=== PATIENT | female | born 1960 | race Caucasian/White ===

== ENCOUNTER → 2017-03-16 | Outpatient (CLI) | payer OTHER ==
--- NOTE | 2017-03-16 11:43 | DIAGNOSTIC IMAGING REPORT ---
R FOOT MIN 3 VIEWS ROUTINE CLINICAL HISTORY: Right foot pain COMPARISON: None DISCUSSION: There is a presumed os naviculare. This demonstrates mild irregular margins. Correlation with patient's site of pain is advocated. There are no additional bony findings of significance. There are no erosive or destructive changes. IMPRESSION: 1. Os navicularis demonstrating mild irregular margins. If the patient has pain localized to this area, this could represent os navicularis syndrome. If deemed clinically indicated, an MRI could be obtained to evaluate for associated marrow edema Electronically signed by: Cody Quintanilla M.D. 03/16/2017 11:41 AM Dictated Date/Time: 03/16/2017 11:38 AM
== END | disposition home or self-care (01) ==
LOC: C.RADPV 11:20
PROVIDERS: ATTEND Family Medicine Adult Medicine
DX: M79.673 Pain in unspecified foot (principal)

== ENCOUNTER → 2017-04-19 | Day surgery (SDC) | payer OTHER ==
[2017-04-11 11:02] VITALS: Ht 174.6 cm; Wt 63.6 kg
[~2017-04-19] VITALS: Ht 174.6 cm; Wt 63.6 kg
[~2017-04-19] MED LIST: CALCIUM LACTATE PO; CONGAPLEX PO; DIGE1CAP10 PO; IMMUNE SUPPORT PO; LIDOCAINE HCL 2% 2 ML VIAL (20MG/ML) ONE; MISCCAP80 PO; OMEG10007 PO; PROPOFOL IV EMULSION 10 MG/ML 20 ML VIAL IV ONE; SODIUM CHLORIDE 0.9% 500ML 500 ML IV ONE; VITAMIN D PO; [UNRECOGNIZED DRUG - OTHER] PO; [UNRECOGNIZED DRUG - OTHER] PO
--- NOTE | 2017-04-19 12:43 | Endo History and Physical ---
History & Physical Date of Service: Apr 19, 2017. Chief Complaint: Change in bowel habits Referring Physician: Arias Starr History of Present Illness 56 yo CF who presents for colonoscopy secondary to change in bowel habits. Past Surgical History Hx Cardiac Surgery: No Hx Internal Defibrillator: No Hx Pacemaker: No Hx Abdominal Surgery: Yes (MYOMECTOMY, HYSTERECTOMY AND LEFT OOPHERECTOMY) Hx of Implantable Prosthesis: No Hx Post-Op Nausea and Vomiting: Yes Hx Cancer Surgery: No Hx Thoracic Surgery: No Hx Orthopedic: No Hx Urinary Tract Surgery: No Family History Polyp, IBD Social History Smoking Status: Never Smoker Hx Substance Use: No Hx Alcohol Use: Yes (RARELY) Allergies Coded Allergies: Penicillins (Verified Allergy, Unknown, RASH, 04/11/17) Uncoded Allergies: MOLDS, DUST (Allergy, Unknown, SNEEZING, 04/25/04) Current Medications Reported Home Medications Medications Dose Route/Sig Max Daily Dose Days Date Category [Vitamin D] 800 Mg PO DAILY WITH LUNCH 04/11/17 Reported [Herbal Blend] 1 Cap PO TID 04/11/17 Reported [Immune Support] 1 Cap PO BID 04/11/17 Reported [place]-3 (Fish Oil) 1 Ea Cap 1 Cap PO TID 04/11/17 Reported [Calcium Lactate] 2 Tab PO WM 04/11/17 Reported Digestive Enzyme (Digestive Enzymes) 1 Cap Cap 2 Cap PO WM 04/11/17 Reported [Congaplex] 1 Cap PO BID 04/11/17 Reported [Liver Defense] 1 Cap PO TID 04/11/17 Reported Probiotic (Probiotic Product) 1 Cap Cap 2 Cap PO TID 04/11/17 Reported Vital Signs Weight (Kilograms): 63.64 Height (Feet): 5 Height (Inches): 8.75 Date Time Temp Pulse Resp B/P (MAP) Pulse Ox O2 Delivery O2 Flow Rate FiO2 04/19/17 12:38 36.8 68 18 107/62 (77) 95 Room Air Physical Exam General Appearance: WD/WN, no apparent distress Respiratory/Chest: Auscultation: breath sounds normal Cardiovascular: Heart Auscultation: RRR Abdomen: Bowel Sounds: normal Inspection & Palpation: soft, non-distended, no tenderness, guarding & rebound Assessment and Plan Assessment: 56 yo CF who presents for colonoscopy secondary to change in bowel habits. Plan: Proceed with colonoscopy.
--- NOTE | 2017-04-19 13:05 | Discharge Instructions ---
Endoscopy Patient Instructions Date / Procedure(s) Performed Apr 19, 2017. Colonoscopy Allergy Information Coded Allergies: Penicillins (Verified Allergy, Unknown, RASH, 04/11/17) Uncoded Allergies: MOLDS, DUST (Allergy, Unknown, SNEEZING, 04/25/04) Discharge Date / Findings Apr 19, 2017. Diverticulosis Internal hemorrhoids Medication Instructions OK to resume all medications today as prescribed Reported Home Medications Medications Dose Route/Sig Max Daily Dose Days Date Category [Vitamin D] 800 Mg PO DAILY WITH LUNCH 04/11/17 Reported [Herbal Blend] 1 Cap PO TID 04/11/17 Reported [Immune Support] 1 Cap PO BID 04/11/17 Reported [place]-3 (Fish Oil) 1 Ea Cap 1 Cap PO TID 04/11/17 Reported [Calcium Lactate] 2 Tab PO WM 04/11/17 Reported Digestive Enzyme (Digestive Enzymes) 1 Cap Cap 2 Cap PO WM 04/11/17 Reported [Congaplex] 1 Cap PO BID 04/11/17 Reported [Liver Defense] 1 Cap PO TID 04/11/17 Reported Probiotic (Probiotic Product) 1 Cap Cap 2 Cap PO TID 04/11/17 Reported Provider Instructions Activity Restrictions - No exercising or heavy lifting for 24 hours. - Do not drink alcohol the day of the procedure. - Do not drive a car or operate machinery until the day after the procedure. - Do not make any important decisions or sign important papers in 24 hours after the procedure. Following Day: - Return to full activity which may include returning to work/school. Diet Start your diet with liquids and light foods (jello, soup, juice, toast). Then eat your usual diet if not nauseated. Treatment For Common After Affects For mild abdominal pain, bloating, or excessive gas: - Rest - Eat lightly - Lie on right side Follow-Up Information Follow-up with Arias Starr as scheduled Anesthesia Information What You Should Know You have had a procedure that required some medicine to reduce anxiety and discomfort. This treatment is called moderate sedation. After receiving the treatment, you may be sleepy, but you will be able to breathe on your own. The effects of the treatment may last for several hours. Follow these instructions along with Activity/Diet recommendations noted above: * Do NOT do anything where dizziness or clumsiness would be dangerous. * Rest quietly at home today, then you can be up and about tomorrow. * Have a responsible person stay with you the rest of today. * You may have had an I.V. today. If so, you may take the dressing off later today. Recommendations Call your doctor if: * Trouble breathing * Continuous vomiting for more than 24 hours * Temperature above 101 degrees * Severe abdominal pain or bloating * Pain not relieved by pain medicine ordered * There is increased drainage or redness from any incision * A large amount of rectal bleeding greater than 2-3 tablespoons. (If you had a polyp/s removed or have hemorrhoids, a small amount of blood - from the rectum is to be expected.) * You have any unanswered questions or concerns. IN THE EVENT OF A SERIOUS EMERGENCY, GO TO THE NEAREST EMERGENCY ROOM Your discharge instructions were prepared by provider Aman Davison. Patient Instructions Signature Page Florence Dill Patient (or Guardian) Signature/Date: I have read and understand the instructions given to me by my caregivers. Caregiver/RN/Doctor Signature/Date: The above-named patient and/or guardian has received patient instructions on this date. + Original Patient Signature Page (only) stays with chart. Please make copy for patient.
--- NOTE | 2017-04-19 13:37 | GI REPORT ---
Procedure Date: 04/19/2017 12:57 PM Procedure: Colonoscopy Indications: Change in bowel habits Medicines: Monitored Anesthesia Care Complications: No immediate complications. Estimated Blood Loss: Estimated blood loss: none. Procedure: Pre-Anesthesia Assessment: - Prior to the procedure, a History and Physical was performed, and patient medications and allergies were reviewed. The patient's tolerance of previous anesthesia was also reviewed. The risks and benefits of the procedure and the sedation options and risks were discussed with the patient. All questions were answered, and informed consent was obtained. Prior Anticoagulants: The patient has taken no previous anticoagulant or antiplatelet agents. ASA Grade Assessment: II - A patient with mild systemic disease. After reviewing the risks and benefits, the patient was deemed in satisfactory condition to undergo the procedure. After I obtained informed consent, the scope was passed under direct vision. Throughout the procedure, the patient's blood pressure, pulse, and oxygen saturations were monitored continuously. The scope was introduced through the anus and advanced to the terminal ileum. The colonoscopy was performed without difficulty. The patient tolerated the procedure well. The quality of the bowel preparation was good. The terminal ileum, ileocecal valve, appendiceal orifice, and rectum were photographed. Findings: The colon (entire examined portion) appeared normal. Impression: - The entire examined colon is normal. - No specimens collected. Recommendation: - Resume previous diet. - Continue present medications. - Repeat colonoscopy in 10 years for surveillance. - Return to primary care physician as previously scheduled. Aman Davison DO 04/19/2017 1:36:49 PM This report has been signed electronically. Note Initiated On: 04/19/2017 12:57 PM I attest to the content of the Intraoperative Record and orders documented therein, exceptions below
[2017-04-19 13:59] VITALS: BP 122/93; PULSE 58; O2SAT 99
--- NOTE | 2017-04-19 14:03 | Anesthesiology Progress Note ---
Anesthesia Post Op Note Date & Time Apr 19, 2017 at 14:03 Vital Signs Pain Intensity: 0 Vital Signs Past 12 Hours Date Time Temp Pulse Resp B/P (MAP) Pulse Ox O2 Delivery O2 Flow Rate FiO2 04/19/17 13:44 36.8 62 18 109/63 (78) 97 Room Air 04/19/17 13:29 68 18 102/63 (76) 96 Room Air 04/19/17 12:38 36.8 68 18 107/62 (77) 95 Room Air Notes Mental Status: alert / awake / arousable, participated in evaluation Pt Amnestic to Procedure: Yes Nausea / Vomiting: adequately controlled Pain: adequately controlled Airway Patency, RR, SpO2: stable & adequate BP & HR: stable & adequate Hydration State: stable & adequate Anesthetic Complications: no major complications apparent
== END | disposition home or self-care (01) ==
LOC: C.GI 12:10
PROVIDERS: ATTEND Internal Medicine
DX: R19.4 Change in bowel habit (principal); Z68.21 Body mass index [BMI] 21.0-21.9, adult; Z88.0 Allergy status to penicillin; Z98.890 Other specified postprocedural states; Z90.710 Acquired absence of both cervix and uterus; Z90.721 Acquired absence of ovaries, unilateral; Z83.71 Family history of colonic polyps